=== PATIENT | female | born 2005 | race African-American/Black ===

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

== ENCOUNTER 2023-12-29 01:10 | Emergency (ER) | payer SELFPAY ==
[~2023-12-29] VITALS: Ht 162.6 cm; Wt 81.1 kg
[2023-12-29 01:23] VITALS: BP 133/109; PULSE 84; RESP 18; TEMP 98; O2SAT 100
[2023-12-29] MEDS ORDERED: IBUP-2029 MT (02:41)
[2023-12-29] MEDS: KETOROLAC 30MG/ML VIAL IM ONE (03:50)
== END 2023-12-29 04:22 | disposition left against medical advice (07) ==
LOC: ER 01:10
DX: M54.9 Dorsalgia, unspecified (principal); F12.90 Cannabis use, unspecified, uncomplicated; V98.8XXA Other specified transport accidents, initial encounter; Y93.89 Activity, other specified; Y92.89 Other specified places as the place of occurrence of the external cause; Y99.8 Other external cause status
CPT/HCPCS: 99283; 96372; J1885

== ENCOUNTER 2024-01-03 08:40 | Emergency (ER) | payer SELFPAY ==
[~2024-01-03] VITALS: Ht 167.6 cm; Wt 79.0 kg
[~2024-01-03 08:40] MED LIST: IBUP-2029 MT
[2024-01-03 08:45] VITALS: BP 80/62; RESP 20; TEMP 98.1; O2SAT 99
[2024-01-03 08:50] VITALS: PULSE 70
[2024-01-03] MEDS: LIDOCAINE HCL 1% 20ML VIAL (Pyxis) INJ INFIL ONE (09:55)
[2024-01-03] MEDS: CEFTRIAXONE SODIUM 500MG VIAL IM ONE (09:55)
[2024-01-03 10:07] LABS: CLARITY URINE CLEAR (CLEAR); COLOR URINE YELLOW (YELLOW); GLUCOSE URINE NEGATIVE (NEGATIVE); KETONES URINE NEGATIVE (NEGATIVE); LEUKOCYTE ESTERASE URINE NEGATIVE (NEGATIVE); NITRITE URINE NEGATIVE (NEGATIVE); OCCULT BLOOD URINE NEGATIVE (NEGATIVE); PROTEIN URINE NEGATIVE (NEGATIVE); SPECIFIC GRAVITY URINE 1.011 (1.005-1.030); UROBILINOGEN URINE 0.2 E.U./dL (0.2-1.0)
[2024-01-03] MEDS ORDERED: VALA10002 MT (10:16)
[2024-01-03] MEDS ORDERED: DOXY100C5 MT (10:16)
[2024-01-06 04:10] LABS: CHLAMYDIA TRACHOMATIS NAA Negative (Negative); NEISSERIA GONORRHOEAE NAA Negative (Negative)
== END 2024-01-03 10:35 | disposition home or self-care (01) ==
LOC: ER 08:44
DX: Z11.3 Encounter for screening for infections with a predominantly sexual mode of transmission (principal); F12.90 Cannabis use, unspecified, uncomplicated
CPT/HCPCS: 99283; 86592; 87491; 87591; 81003; 36415; 96372; J0696; J3490